=== PATIENT | female | born 1985 | race Asian ===

== ENCOUNTER 2016-08-13 00:05 | Inpatient (IN) | payer SELFPAY ==
[~2016-08-13] VITALS: Ht 172.7 cm; Wt 68.0 kg
[2016-08-13 00:52] VITALS: BP 109/58
[2016-08-13] MEDS ORDERED: LACTATED RINGERS 1,000 ML IV SCH (01:07)
[2016-08-13] MEDS ORDERED: CITRIC ACID/SODIUM CITRATE 30 ML UDC PO ONE (01:10)
[2016-08-13 02:35] LABS: BASOPHILS # (AUTO) 0.1 K/uL (0.00-0.22); BASOPHILS % (AUTO) 0.7 % (0.0-2.0); EOSINOPHILS # (AUTO) 0.1 K/uL (0-0.4); EOSINOPHILS % (AUTO) 1.3 % (0.0-4.0); HEMATOCRIT 34.2 % (36-48); HEMOGLOBIN 11.5 g/dL (12.0-16.0); LYMPHOCYTES # (AUTO) 1.4 K/uL (2.5-16.5); LYMPHOCYTES % (AUTO) 16.4 % (20.5-51.1); MEAN CORPUSCULAR HEMOGLOBIN 33 pg (27-31); MEAN CORPUSCULAR HGB CONC 34 g/dL (33-37); MEAN CORPUSCULAR VOLUME 97 fL (80-94); MONOCYTES # (AUTO) 0.6 K/uL (0.8-1.0); MONOCYTES % (AUTO) 6.7 % (1.7-9.3); NEUTROPHILS # (AUTO) 6.4 K/uL (1.8-7.7); NEUTROPHILS % (AUTO) 74.9 % (42.2-75.2); PLATELET COUNT (AUTO) 105 K/uL (140-450); RED BLOOD CELL COUNT(AUTO) 3.53 MIL/uL (4.20-5.40); RED CELL DISTRIBUTION WIDTH 13.1 % (11.6-13.7); WHITE BLOOD COUNT (AUTO) 8.6 K/uL (4.8-10.8)
[2016-08-13 02:42] LABS: APPEARANCE,URINE HAZY (CLEAR); BILIRUBIN,URINE NEGATIVE (NEGATIVE); BLOOD, URINE NEGATIVE (NEGATIVE); COLOR,URINE YELLOW (YELLOW); LEUKOCYTE ESTERASE ,URINE 3+ (NEGATIVE); NITRITE, URINE NEGATIVE (NEGATIVE); PH,URINE 7.5 (5.0-9.0); PROTEIN,URINE TRACE (NEGATIVE); UGLUCOSE NEGATIVE (NEGATIVE)
[2016-08-13 02:55] LABS: HIV RAPID SCREEN NON-REACTIVE (NON REACTIV)
[2016-08-13 03:08] LABS: BACTERIA,URINE 3+ /HPF (None Seen); RBC,URINE 0-5 (RARE) /HPF (0-5)
[2016-08-13 03:09] LABS: SQUAMOUS EPITHELIAL CELL,UR 20-50 /LPF (0-3 (FEW))
[2016-08-13] MEDS ORDERED: DOCO100C PO (04:12)
[2016-08-13] MEDS ORDERED: METHYLERGONOVINE 0.2 MG/ML AMP IM PRN (05:15)
[2016-08-13] MEDS ORDERED: IBUPROFEN 800 MG TAB PO PRN (05:15)
[2016-08-13] MEDS ORDERED: SIMETHICONE 80 MG TAB.CHEW PO PRN (05:15)
[2016-08-13] MEDS ORDERED: MEASLES, MUMPS, AND RUBELLA 1 VIAL SQVAC PRN (05:15)
[2016-08-13] MEDS ORDERED: TEMAZEPAM 15 MG CAP PO PRN (05:15)
[2016-08-13] MEDS ORDERED: TRIMETHOBENZAMIDE 200 MG/2 ML SYR IM PRN (05:15)
[2016-08-13] MEDS ORDERED: oxyCODONE/APAP 5/325 MG 1 TAB TAB PO PRN (05:15)
[2016-08-13] MEDS ORDERED: ceFAZolin 1,000 MG VIAL ONE (05:52)
[2016-08-13] MEDS ORDERED: TRIAMCINOLONE 40 MG/ML 5ML VIAL ONE (05:53)
[2016-08-13] MEDS ORDERED: OXYTOCIN 10 UNITS/ML VIAL ONE (05:53)
[2016-08-13] MEDS ORDERED: MORPHINE PRES FREE 10 MG/10 ML AMP IV ONE (06:12)
[2016-08-13] MEDS ORDERED: ONDANSETRON 4 MG/2 ML VIAL IVP ONE (06:40)
[2016-08-13] MEDS ORDERED: SODIUM BICARBONATE 8.4% PFS 50 MEQ/50 ML SYR IVP ONE (06:58)
[2016-08-13] MEDS ORDERED: METHYLERGONOVINE 0.2 MG/ML AMP ONE (07:22)
[2016-08-13] MEDS ORDERED: OXYTOCIN 20 UNITS/LR PREMIX 1,000 ML IV ONE (07:30)
[2016-08-13] MEDS ORDERED: diphenhydrAMINE 50 MG/ML VIAL ONE (07:30)
[2016-08-13] MEDS ORDERED: diphenhydrAMINE 50 MG/ML VIAL IVP PRN (07:35)
[2016-08-13] MEDS ORDERED: OXYTOCIN 20 UNITS/LR PREMIX 1,000 ML IV SCH (07:35)
[2016-08-13] MEDS ORDERED: NALOXONE 0.4 MG/ML VIAL IVP PRN (07:35)
[2016-08-13] MEDS ORDERED: KETOROLAC 30 MG/ML VIAL IVP PRN (07:35)
[2016-08-13] MEDS: MEPERIDINE 25 MG/ML SYR IVP PRN ×2 (08:40→08:50)
[2016-08-13] MEDS ORDERED: MEPERIDINE 25 MG/ML SYR ONE (08:43)
--- NOTE | 2016-08-13 09:51 | NUR ---
PATIENT HAS BEEN SCREENED AND CATEGORIZED LOW NUTRITION RISK. PATIENT WILL BE SEEN WITHIN 7 DAYS OF ADMISSION. 08/20/16 ABDIRIZAK BOCANEGRA MBA, RD
[2016-08-13 13:10] LABS: RAPID PLASMA REAGIN NON-REACTIVE (Non Reactiv)
[2016-08-13] MEDS: OXYTOCIN 20 UNITS/LR PREMIX 1,000 ML IV SCH (20:12)
[2016-08-13] MEDS ORDERED: DOCUSATE SOD/SENNA 50/8.6 MG 1 TAB PO SCH (21:00)
[2016-08-14] MEDS: OXYTOCIN 20 UNITS/LR PREMIX 1,000 ML IV SCH (03:32)
[2016-08-14 06:14] LABS: BASOPHILS # (AUTO) 0.1 K/uL (0.00-0.22); BASOPHILS % (AUTO) 0.5 % (0.0-2.0); EOSINOPHILS # (AUTO) 0.2 K/uL (0-0.4); EOSINOPHILS % (AUTO) 1.4 % (0.0-4.0); HEMATOCRIT 32.8 % (36-48); HEMOGLOBIN 10.5 g/dL (12.0-16.0); LYMPHOCYTES # (AUTO) 2.2 K/uL (2.5-16.5); LYMPHOCYTES % (AUTO) 17.7 % (20.5-51.1); MEAN CORPUSCULAR HEMOGLOBIN 30 pg (27-31); MEAN CORPUSCULAR HGB CONC 32 g/dL (33-37); MEAN CORPUSCULAR VOLUME 94 fL (80-94); MONOCYTES # (AUTO) 0.6 K/uL (0.8-1.0); MONOCYTES % (AUTO) 5.2 % (1.7-9.3); NEUTROPHILS # (AUTO) 9.2 K/uL (1.8-7.7); NEUTROPHILS % (AUTO) 75.2 % (42.2-75.2); PLATELET COUNT (AUTO) 112 K/uL (140-450); RED BLOOD CELL COUNT(AUTO) 3.48 MIL/uL (4.20-5.40); RED CELL DISTRIBUTION WIDTH 13.9 % (11.6-13.7); WHITE BLOOD COUNT (AUTO) 12.3 K/uL (4.8-10.8)
[2016-08-14] MEDS: HYDROcodone/APAP 5/325 MG 1 TAB TAB PO PRN ×2 (09:30→16:05)
[2016-08-15] MEDS ORDERED: IBUP-2213 PO (09:34)
== END 2016-08-15 11:00 | disposition home or self-care (01) | DRG 766 ==
LOC: MLD 00:05 → MFCC 08:47
PROVIDERS: ADMIT Obstetrics & Gynecology; ATTEND Obstetrics & Gynecology
PROC: 10D00Z1 Extraction of Products of Conception, Low, Open Approach (ICD-10-PCS; principal; 2016-08-13 06:00)
DX: O34.211 Maternal care for low transverse scar from previous cesarean delivery (principal); Z37.0 Single live birth; Z3A.39 39 weeks gestation of pregnancy; Z83.3 Family history of diabetes mellitus; Z82.49 Family history of ischemic heart disease and other diseases of the circulatory system; Z28.21 Immunization not carried out because of patient refusal
CPT/HCPCS: 36415; 81001; 85025; 86592; 86886; 86900; 86901; 87086; J0690; J1200; J1885; J2175; J2210; J2270; J2405; J2590; J3301; J7060; J7120